=== PATIENT | female | born 1970 | race Caucasian/White ===

== ENCOUNTER 2024-02-20 07:59 | Outpatient (AMB) | payer OTHER, SELFPAY ==
--- NOTE | 2024-02-20 08:01 | MHC.PC.OV ---
Vital Signs 02/20/24 08:14 02/20/24 08:21 Height 5 ft 0.83 in Weight 139 lb 6 oz BMI 26.5 BP 142/86 H 138/84 Blood Pressure Location Lt brachial Lt brachial Position Sitting Sitting Respiration 12 Pulse 69 Pulse Source Pulse Oximeter Temp 97.3 F Temp Source Oral Pulse Oximetry (%) 96 Oxygen Delivery Method Room Air Intake Visit Reasons: Transfer from [facility] Intake Note: New patient visit Project Developer Required: No Allergies No Known Allergies Allergy (Verified 02/20/24 08:07) Medication List - Last Reconciled 02/20/24 by Ashley Miller PA-C alendronate 70 mg PO QWEEK amlodipine 10 mg PO DAILY amlodipine 5 mg PO DAILY hydrochlorothiazide 25 mg PO DAILY levothyroxine 50 mcg PO DAILY metoprolol succinate ER 100 mg PO DAILY valsartan 320 mg PO DAILY Tobacco use date assessed: 02/20/24 Dental Screening Dental Screen Date: 02/20/24 Did you have a dental visit in the last 12 months?: Yes Did you have a dental problem in the last 6 months where you did not have access to dental care?: No Was dental information given to patient?: Patient has dentist HPI Transfer from [facility] HPI Details Patient is a 53-year-old female who presents today to establish care/follow-up. She is transferring from [facility] and was last seen by myself on 11/28/2023. She has a significant past medical history of hypertension, ifg, Maninder's thyroiditis, osteoporosis and Raynaud's. CV: Blood pressure today in the office is 138/84. She is currently on valsartan 320 mg, metoprolol 100 mg extended-release, amlodipine 5 mg and chlorthalidone 25 mg. Ran out of chlorthalidone. 1-2 weeks ago. renal artery u/s done and neg. Endo: Last TSH was WNL. She is on levothyroxine 50 mcg. States she has only been taking 25 mcg of levothyroxine for the last couple weeks because she wonders if it is causing weight gain. She is on Fosamax for osteoporosis. Pap: Up-to-date, due in 2024 Mammogram: Up-to-date, completed November 2023 Colonoscopy: Up-to-date, due in 2028 [facility] Medical History (Updated 02/20/24 @ 08:19 by Ashley Miller PA-C) Hx of mammogram Raynauds syndrome Osteoporosis HTN (hypertension) Maninder's disease Surgical History (Updated 02/20/24 @ 08:04 by Hermelinda Valderrama CMA) History of colonoscopy Social History Housing: House Patient Tobacco Use Status: Former Tobacco user Years Smoked: College years e-Cigarette/Vaping Use: Never Used Second Hand Smoke Exposure: No service: No Current occupational status: employed 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 1. Little interest or pleasure in doing things: not at all 2. Feeling down, depressed, or hopeless: not at all 3. Trouble falling or staying asleep, or sleeping too much: not at all 4. Feeling tired or having little energy: not at all 5. Poor appetite or overeating: not at all 6. Feeling bad about yourself - or that you are a failure or have let yourself or your family down: not at all 7. Trouble concentrating on things, such as reading the newspaper or watching television: not at all 8. Moving or speaking so slowly that other people could have noticed. Or the opposite - being so fidgety or restless that you have been moving around a lot more than usual: not at all 9. Thoughts that you would be better off or of hurting yourself in some way: not at all Total score: 0 Depression Screening Interpretation: Negative Depression Screening Done: Yes [id number] - PHQ-9 Billing: Yes Source: Developed by Drs. Mal Shah, Yue Lawson, Jayant aRmos and colleagues, with an educational power from [employer]. Thrive Questionnaire Date Thrive assessed: 02/20/24 I am a: Patient What is your living situation today?: I have a steady place to live Within the past 12 months, did the food you bought not last and you didn't have the money to get more?: Never true Within the past 12 months, did you worry whether your food would run out before you got money to buy more?: Never true Do you have trouble paying for medicines?: No Do you have trouble getting transportation to medical appointments?: No Do you have trouble paying your heating and electricity bill?: No Do you have trouble taking care of your child, family member or friend?: No Do you have trouble with day-to-day activities such as bathing, preparing meals, shopping, managing finances, etc.?: No Are you currently unemployed and looking for a job?: No Are you interested in more education?: No Please select the resources that you would like help with: None THRIVE Score: 0 AUDIT C Alcohol Use Questionnaire (AUDIT-C) 1. How often do you have a drink containing alcohol?: 2-3 times a week 2. How many drinks containing alcohol do you have on a typical day when you are drinking?: 1 or 2 3. How often do you have six or more drinks on one occasion?: Never Total Score: 3 SARAH-7 AMB Questionnaire SARAH-7 Date SARAH - 7 assessed: 02/20/24 Feeling nervous, anxious, or on edge: 0 = Not at all Not being able to stop or control worryin = Not at all Worrying too much about different things: 0 = Not at all Trouble relaxin = Not at all Being so restless that it is hard to sit still: 0 = Not at all Becoming easily annoyed or irritable: 0 = Not at all Feeling afraid as if something awful might happen: 0 = Not at all Total SARAH-7 score (0-4 normal; 5-9 mild; 10-14 moderate; 15-21 severe): 0 Source: Developed by Drs. Mal Shah, Yue Lawson, Jayant Ramos and colleagues, with an educational power from [employer]. SARAH-7 Assessment Billing SARAH-7 Assessment Tool: SARAH-7 Assessment 47775 Physical exam (Primary Care) Vital Signs: Last Vital Signs Temp 97.3 F 02/20/24 08:14 Pulse 69 02/20/24 08:14 Resp 12 02/20/24 08:14 BP 142/86 H 02/20/24 08:14 Pulse Ox 96 02/20/24 08:14 Oxygen Delivery Method Room Air 02/20/24 08:14 BMI result Body Mass Index 26.5 Depression Screening Interpretation: Negative Const Orientation/consciousness: patient oriented x3 HENMT Ears: hearing grossly normal bilaterally Neck Thyroid: Thyroid normal Lymphatic: no lymphadenopathy noted Resp Auscultation: clear to auscultation bilaterally Cardio Rate: regular rate Rhythm: regular rhythm Heart sounds: S1 normal heart sound present and S2 normal heart sound present GI Inspection: Yes normal to inspection Palpation (GI): Soft to palpation and Other GI palpation findings present (nontender, no cva tenderness) Auscultation: normoactive bowel sounds Rectal Exam - Female: deferred Skin General skin exam: no rashes or lesions noted Neuro General: patient oriented x3, gait normal and no focal motor deficits Assessment and Plan Assessment & Plan (1) Impaired fasting glucose: Code(s): R73.01 - Impaired fasting glucose Plan: a1c ordered (2) Osteoporosis: Code(s): M81.0 - Age-related osteoporosis without current pathological fracture Plan: continue on fosamax (3) Maninder's disease: Code(s): E06.3 - Autoimmune thyroiditis Plan: tsh ordered. continue levothyroxine 50 mcg for 4 weeks then repeat labs. (4) HTN (hypertension): Code(s): I10 - Essential (primary) hypertension Plan: chlorthalidone ordered. continue current meds Orders: Orders Comprehensive [facility]. Panel Fast Today E06.3 - Autoimmune thyroiditis, I10 - Essential (primary) hypertension, M81.0 - Age-related osteoporosis without current pathological fracture, R73.01 - Impaired fasting glucose Lipid Panel Today E06.3 - Autoimmune thyroiditis, I10 - Essential (primary) hypertension, M81.0 - Age-related osteoporosis without current pathological fracture, R73.01 - Impaired fasting glucose TSH reflex Free T4 Today E06.3 - Autoimmune thyroiditis, I10 - Essential (primary) hypertension, M81.0 - Age-related osteoporosis without current pathological fracture, R73.01 - Impaired fasting glucose Complete Blood Count Auto Diff Today E06.3 - Autoimmune thyroiditis, I10 - Essential (primary) hypertension, M81.0 - Age-related osteoporosis without current pathological fracture, R73.01 - Impaired fasting glucose Hemoglobin A1c Today E06.3 - Autoimmune thyroiditis, I10 - Essential (primary) hypertension, M81.0 - Age-related osteoporosis without current pathological fracture, R73.01 - Impaired fasting glucose Medications: New amlodipine 5 mg PO DAILY 90 tabs 3RF valsartan 320 mg PO DAILY 90 tabs 3RF metoprolol succinate ER 100 mg PO DAILY 90 tabs 3RF chlorthalidone 25 mg PO DAILY 90 tabs 3RF Coding Level of Care Code Est Pt Level 4 (18964) Complex EM visit Add On G2211 Diagnoses Impaired fasting glucose R73.01 Osteoporosis M81.0 Maninder's disease E06.3 HTN (hypertension) I10 Additional Codes SARAH-7 Assessment Billing - SARAH-7 Assessment Tool: SARAH-7 Assessment 56952 ([id number])
[2024-02-20 08:14] VITALS: BP 142/86; PULSE 69; RESP 12; TEMP 36.3; O2SAT 96; BMI 26.5
[2024-02-20 08:21] VITALS: BP 138/84
== END 2024-02-20 08:46 | disposition home or self-care (01) ==
PROVIDERS: PCP Physician Assistant; Visit Provider Physician Assistant
DX: R73.01 Impaired fasting glucose (principal); M81.0 Age-related osteoporosis without current pathological fracture; E06.3 Autoimmune thyroiditis; I10 Essential (primary) hypertension
CPT/HCPCS: 99214; G2211

== ENCOUNTER 2024-08-26 07:33 | Outpatient (REF) | payer OTHER, SELFPAY ==
[2024-08-26 11:09] LABS: MANUAL DIFF FLAG NO
[2024-08-26 11:14] LABS: Basophils Absolute Auto 0.1 X10*3/uL (0.0-0.2); Basophils Percent Auto 1.3 % (0-2); Eosinophils Absolute Auto 0.2 X10*3/uL (0.0-0.4); Eosinophils Percent Auto 5.9 % (0-4); Hematocrit 37.5 % (37.0-47.0); Imm Gran Abs Auto 0.01 X10*3/uL (0.00-0.03); Imm Gran Pct Auto 0.3 % (0.0-0.4); Lymphocytes Absolute Auto 1.6 X10*3/uL (1.2-4.9); Mean Corpuscular HGB Conc 34.7 g/dl (31.0-35.0); Mean Corpuscular Hemoglobin 32.1 pg (27.0-33.0); Mean Corpuscular Volume 92.6 fL (80.0-98.0); Mean Platelet Volume 11.6 fL (9.4-12.3); Monocytes Absolute Auto 0.3 X10*3/uL (0.1-1.2); Monocytes Percent Auto 7.5 % (2-11); Neutrophils Absolute Auto 1.6 x10*3/uL (2.0-8.3); Platelet Count 227 X10*3/uL (160-400); Red Blood Count 4.05 X10*6/uL (4.20-5.50); Red Cell Distribution Width 12.3 % (11.0-16.0); White Blood Count 3.7 X10*3/uL (4.8-10.8)
[2024-08-26 11:29] LABS: Estimated Average Glucose 105 mg/dL; Hemoglobin A1C 114.3549 umol/L; Hemoglobin A1c % 5.3 % (<6.0); Total Hemoglobin (HGBA1C) 3305.0443 umol/L
[2024-08-26 11:38] LABS: Alanine Aminotransferase 18 U/L (0-31); Albumin Level 4.1 g/dL (3.5-5.0); Alkaline Phosphatase 47 U/L (39-117); Anion Gap 11 (12-20); Aspartate Amino Transferase 24 U/L (5-31); Bilirubin Total 0.6 mg/dL (0.0-1.0); Blood Urea Nitrogen 15 mg/dL (9-16); Calcium 9.4 mg/dL (8.4-10.2); Carbon Dioxide 30 mmol/L (22-29); Chloride 103 mmol/L (96-108); Cholesterol 218 mg/dL (<200); Estimated Glomerular Filt Rate > 60; Glucose Fasting 99 mg/dL (60-99); HDL Cholesterol 69 mg/dL (>40); LDL Cholesterol Calculated 132 mg/dL (<100); Potassium 3.5 mmol/L (3.3-5.1); Sodium 140 mmol/L (135-145); Total Protein 7.2 g/dL (6.5-8.0); Triglycerides 86 mg/dL (<150)
[2024-08-26 12:01] LABS: TSH reflex Free T4 2.78 uIU/mL (0.32-4.0)
== END 2024-08-26 07:34 | disposition home or self-care (01) ==
LOC: HO.WFDLDS 07:33
PROVIDERS: Visit Provider Physician Assistant
DX: I10 Essential (primary) hypertension (principal); E06.3 Autoimmune thyroiditis; M81.0 Age-related osteoporosis without current pathological fracture; R73.01 Impaired fasting glucose
CPT/HCPCS: 36415; 80053; 80061; 83036; 84443; 85025

== ENCOUNTER 2024-08-27 15:33 | Outpatient (AMB) | payer OTHER, SELFPAY ==
--- NOTE | 2024-08-27 15:39 | MHC.PC.OV ---
Vital Signs 08/27/24 15:44 Height 5 ft 0.3 in Weight 140 lb 6 oz BMI 27.1 BP 122/84 Blood Pressure Location Lt brachial Position Sitting Pulse 59 Pulse Source Pulse Oximeter Pulse Oximetry (%) 99 Oxygen Delivery Method Room Air Intake Visit Reasons: Annual PE Intake Note: Physical Roof Tiler Required: No Allergies No Known Allergies Allergy (Verified 08/27/24 15:39) Tobacco use date assessed: 02/20/24 Dental Screening Dental Screen Date: 02/20/24 HPI Annual PE HPI Details Patient is a 53-year-old female who presents today for a cpe. She has a significant past medical history of hypertension, ifg, Maninder's thyroiditis, osteoporosis and Raynaud's. CV: Blood pressure today in the office is 122/84. She is currently on valsartan 320 mg, metoprolol 100 mg extended-release, amlodipine 5 mg and chlorthalidone 25 mg. renal artery u/s done and neg. Endo: Last TSH was WNL. She is on levothyroxine 50 mcg. Pap: Up-to-date, due in 2024 Mammogram: Up-to-date, completed November 2023 Colonoscopy: Up-to-date, due in 2028 [facility] Medical History (Updated 08/27/24 @ 16:06 by Ashley Miller PA-C) Hx of mammogram Raynauds syndrome Osteoporosis HTN (hypertension) Maninder's disease Surgical History History of colonoscopy Social History (Updated 08/27/24 @ 15:46 by Hermelinda Valderrama CMA) Housing: House Alcohol intake: current Patient Tobacco Use Status: Former Tobacco user Years Smoked: College years e-Cigarette/Vaping Use: Never Used Second Hand Smoke Exposure: No service: No Current occupational status: employed 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 1. Little interest or pleasure in doing things: not at all 2. Feeling down, depressed, or hopeless: not at all 3. Trouble falling or staying asleep, or sleeping too much: not at all 4. Feeling tired or having little energy: not at all 5. Poor appetite or overeating: not at all 6. Feeling bad about yourself - or that you are a failure or have let yourself or your family down: not at all 7. Trouble concentrating on things, such as reading the newspaper or watching television: not at all 8. Moving or speaking so slowly that other people could have noticed. Or the opposite - being so fidgety or restless that you have been moving around a lot more than usual: not at all 9. Thoughts that you would be better off or of hurting yourself in some way: not at all Total score: 0 Source: Developed by Drs. Mal Shah, Yue Lawson, Jayant Ramos and colleagues, with an educational power from [employer]. Thrive Questionnaire Date Thrive assessed: 02/20/24 I am a: Patient What is your living situation today?: I have a steady place to live Within the past 12 months, did the food you bought not last and you didn't have the money to get more?: Never true Within the past 12 months, did you worry whether your food would run out before you got money to buy more?: Never true Do you have trouble paying for medicines?: No Do you have trouble getting transportation to medical appointments?: No Do you have trouble paying your heating and electricity bill?: No Do you have trouble taking care of your child, family member or friend?: No Do you have trouble with day-to-day activities such as bathing, preparing meals, shopping, managing finances, etc.?: No Are you currently unemployed and looking for a job?: No Are you interested in more education?: No Please select the resources that you would like help with: None Currently or been in a relationship where the following occur: No concerns reported THRIVE Score: 0 AUDIT C Alcohol Use Questionnaire (AUDIT-C) 1. How often do you have a drink containing alcohol?: 2-4 times a month 2. How many drinks containing alcohol do you have on a typical day when you are drinking?: 1 or 2 3. How often do you have six or more drinks on one occasion?: Monthly Total Score: 4 SARAH-7 AMB Questionnaire SARAH-7 Date SARAH - 7 assessed: 02/20/24 Feeling nervous, anxious, or on edge: 0 = Not at all Not being able to stop or control worryin = Not at all Worrying too much about different things: 0 = Not at all Trouble relaxin = Not at all Being so restless that it is hard to sit still: 0 = Not at all Becoming easily annoyed or irritable: 0 = Not at all Feeling afraid as if something awful might happen: 0 = Not at all Total SARAH-7 score (0-4 normal; 5-9 mild; 10-14 moderate; 15-21 severe): 0 Source: Developed by Drs. Mal Shah, Yue Lawson, Jayant Ramos and colleagues, with an educational power from [employer]. Physical exam (Primary Care) Vital Signs: Last Vital Signs Pulse 59 08/27/24 15:44 BP 122/84 08/27/24 15:44 Pulse Ox 99 08/27/24 15:44 Oxygen Delivery Method Room Air 08/27/24 15:44 BMI result Body Mass Index 27.1 Tobacco/Smoking Status: Tobacco use Status Tobacco use date assessed 02/20/24 08/27/24 15:46 Patient Tobacco Use Status Former Tobacco user 08/27/24 15:46 e-Cigarette/Vaping Use Never Used 08/27/24 15:46 PHQ-9: PHQ-9 Score PHQ-9: Total score 0 08/27/24 15:46 Thrive Assessment: Date of Thrive Assessment Date Thrive assessed 02/20/24 08/27/24 15:46 Currently or been in a relationship where the following occur: No concerns reported Const Orientation/consciousness: patient oriented x3 HENMT Ears: hearing grossly normal bilaterally and TM's normal bilaterally General nose exam: No nasal polyps present Face and sinus: Yes sinuses nontender Mouth: Normal oral and palatal mucosa present Eyes Pupils: Equal, round and reactive pupils present EOM: EOMs intact bilaterally Neck Neck: Yes full ROM and Yes no lymphadenopathy Thyroid: Thyroid normal Chest Chest palpation & inspection: normal inspection of the chest Resp Auscultation: clear to auscultation bilaterally Cardio Rate: regular rate Rhythm: regular rhythm Heart sounds: S1 normal heart sound present and S2 normal heart sound present Peripheral pulses: Peripheral pulses 2+ throughout GI Other: Soft, nontender Auscultation: normal bowel sounds Rectal Exam - Female: deferred General: Yes no CVA tenderness Back/Spine/Pelvis Other: Nontender Back: no CVA tenderness Skin General skin exam: no rashes or lesions noted Neuro General: patient oriented x3, gait normal, CN's II-XI intact bilaterally and deep tendon reflexes 2+ bilaterally Cranial nerves: Yes Equal, round and reactive pupils present Motor exam (neuro): 5/5 motor strength present throughout Sensory Exam: double simultaneous stimulation for sensation normal Coordination: [id number] test normal and Romberg test negative Extrem General: Yes normal to inspection and Yes full ROM Psych Affect: normal affect Attitude: cooperative Thought process: Normal thought process present Thought content: Normal thought content present Insight: Good insight present (Psych) Judgement: Good judgement present (Psych) Coding Level of Care Code Est Pt Prev Care 40-64y(48768) Diagnoses Routine general medical examination at a health care facility Z00.00 Environmental allergies Z91.09 HTN (hypertension) I10 Assessment & Plan Assessment & Plan (1) Routine general medical examination at a [facility] care facility: Code(s): Z00.00 - Encounter for general adult medical examination without abnormal findings Plan: reviewed labs reviewed (2) Environmental allergies: Code(s): Z91.09 - Other allergy status, other than to drugs and biological substances Category: Medical Plan: Wants to see Allergy and immunology. Referral placed. (3) HTN (hypertension): Code(s): I10 - Essential (primary) hypertension Category: Medical Plan: wnl Orders: Referrals Allergy & Immunology Referral Z91.09 - Other allergy status, other than to drugs and biological substances
[2024-08-27 15:44] VITALS: BP 122/84; PULSE 59; O2SAT 99; BMI 27.1
== END 2024-08-27 16:18 | disposition home or self-care (01) ==
PROVIDERS: PCP Physician Assistant; Visit Provider Physician Assistant
DX: Z00.00 Encounter for general adult medical examination without abnormal findings (principal); Z91.09 Other allergy status, other than to drugs and biological substances; I10 Essential (primary) hypertension

== ENCOUNTER → 2024-08-27 15:33 | Outpatient (BNVA) | payer OTHER, SELFPAY | PROVIDERS: PCP Physician Assistant; Visit Provider Physician Assistant ==

== ENCOUNTER 2025-02-26 08:24 | Outpatient (AMB) | payer OTHER, SELFPAY ==
--- NOTE | 2025-02-26 08:35 | MHC.PC.OV ---
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 She has a significant past medical history of hypertension, ifg, Maninder's thyroiditis, osteoporosis and Raynaud's. CV: Blood pressure today in the office is 106/66. She is currently on valsartan 320 mg, metoprolol 100 mg extended-release, amlodipine 5 mg and chlorthalidone 25 mg. renal artery u/s done and neg. Endo: Last TSH was WNL. She is on levothyroxine 50 mcg. 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 She is very physically active and tries to eat very healthy. She has been following with an online compound pharmacy for naltrexone and Wellbutrin but feels that it makes her feel a bit anxious and causes a stutter. She has stopped this medication as she also did not notice any significant weight loss. She would like to try an injectable. Pap: Up-to-date, scheduled this year Mammogram: Up-to-date, completed November 2024 Colonoscopy: Up-to-date, due in 2028 Bone density: UTD, osteoporosis- on fosamax by expanding machine operator [facility] Medical History (Updated 08/27/24 @ 16:06 by Ashley Miller PA-C) Hx of mammogram Raynauds syndrome Osteoporosis HTN (hypertension) Maninder's disease Surgical History History of colonoscopy Social History (Updated 08/27/24 @ 15:46 by Hermelinda Valderrama CMA) Housing: House Alcohol intake: current Patient Tobacco Use Status: Former Tobacco user Years Smoked: College years e-Cigarette/Vaping Use: Never Used Second Hand Smoke Exposure: No service: No Current occupational status: employed 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 1. Little interest or pleasure in doing things: not at all 2. Feeling down, depressed, or hopeless: not at all 3. Trouble falling or staying asleep, or sleeping too much: not at all 4. Feeling tired or having little energy: not at all 5. Poor appetite or overeating: not at all 6. Feeling bad about yourself - or that you are a failure or have let yourself or your family down: not at all 7. Trouble concentrating on things, such as reading the newspaper or watching television: not at all 8. Moving or speaking so slowly that other people could have noticed. Or the opposite - being so fidgety or restless that you have been moving around a lot more than usual: not at all 9. Thoughts that you would be better off or of hurting yourself in some way: not at all Total score: 0 Depression Screening Interpretation: Negative Depression Screening Done: Yes 78185 - PHQ-9 Billing: Yes Source: Developed by Drs. Mal Shah, Yue Lawson, Jayant Ramos and colleagues, with an educational power from [employer]. Thrive Questionnaire Date Thrive assessed: 02/20/24 I am a: Patient What is your living situation today?: I have a steady place to live Within the past 12 months, did the food you bought not last and you didn't have the money to get more?: Never true Within the past 12 months, did you worry whether your food would run out before you got money to buy more?: Never true Do you have trouble paying for medicines?: No Do you have trouble getting transportation to medical appointments?: No Do you have trouble paying your heating and electricity bill?: No Do you have trouble taking care of your child, family member or friend?: No Do you have trouble with day-to-day activities such as bathing, preparing meals, shopping, managing finances, etc.?: No Are you currently unemployed and looking for a job?: No Are you interested in more education?: No Please select the resources that you would like help with: None Currently or been in a relationship where the following occur: No concerns reported THRIVE Score: 0 AUDIT C Alcohol Use Questionnaire (AUDIT-C) 1. How often do you have a drink containing alcohol?: Monthly or less 2. How many drinks containing alcohol do you have on a typical day when you are drinking?: 1 or 2 3. How often do you have six or more drinks on one occasion?: Never Total Score: 1 SARAH-7 AMB Questionnaire SARAH-7 Date SARAH - 7 assessed: 02/20/24 Feeling nervous, anxious, or on edge: 0 = Not at all Not being able to stop or control worryin = Not at all Worrying too much about different things: 0 = Not at all Trouble relaxin = Not at all Being so restless that it is hard to sit still: 0 = Not at all Becoming easily annoyed or irritable: 0 = Not at all Feeling afraid as if something awful might happen: 0 = Not at all Total SARAH-7 score (0-4 normal; 5-9 mild; 10-14 moderate; 15-21 severe): 0 Source: Developed by Drs. Mal Shah, Yue Lawson, Jayant Ramos and colleagues, with an educational power from [employer]. SARAH-7 Assessment Billing SARAH-7 Assessment Tool: SARAH-7 Assessment 11918 Physical exam (Primary Care) Vital Signs: Last Vital Signs Temp 98.5 F 02/26/25 08:38 Pulse 61 02/26/25 08:38 Resp 12 02/26/25 08:38 BP 106/66 02/26/25 08:38 Pulse Ox 97 02/26/25 08:38 Oxygen Delivery Method Room Air 02/26/25 08:38 BMI result Body Mass Index 26.3 Tobacco/Smoking Status: Tobacco use Status Tobacco use date assessed 02/20/24 02/26/25 08:41 Patient Tobacco Use Status Former Tobacco user 02/26/25 08:41 e-Cigarette/Vaping Use Never Used 02/26/25 08:41 PHQ-9: PHQ-9 Score PHQ-9: Total score 0 02/26/25 08:41 Depression Screening Interpretation: Negative Thrive Assessment: Date of Thrive Assessment Date Thrive assessed 02/20/24 02/26/25 08:41 Currently or been in a relationship where the following occur: No concerns reported Const Orientation/consciousness: patient oriented x3 HENMT Ears: hearing grossly normal bilaterally Neck Thyroid: Thyroid normal Lymphatic: no lymphadenopathy noted Resp Auscultation: clear to auscultation bilaterally Cardio Rate: regular rate Rhythm: regular rhythm Heart sounds: S1 normal heart sound present and S2 normal heart sound present GI Inspection: Yes normal to inspection Palpation (GI): Soft to palpation and Other GI palpation findings present (nontender, no cva tenderness) Auscultation: normoactive bowel sounds Rectal Exam - Female: deferred Skin General skin exam: no rashes or lesions noted Neuro General: patient oriented x3, gait normal and no focal motor deficits Results Reviewed Results Reviewed: Laboratory Tests 08/26/24 07:35 WBC 3.7 L RBC 4.05 L Hgb 13.0 Hct 37.5 Plt Count 227 Sodium 140 Potassium 3.5 Chloride 103 Carbon Dioxide 30 H Anion Gap 11 L BUN 15 Creatinine 0.73 Estimated GFR > 60 Fasting Glucose 99 Estimat Average Glucose 105 Hemoglobin A1c % 5.3 Calcium 9.4 Total Bilirubin 0.6 AST 24 ALT 18 Alkaline Phosphatase 47 Total Protein 7.2 Albumin 4.1 Triglycerides 86 Cholesterol 218 H LDL Cholesterol, Calc 132 H HDL Cholesterol 69 TSH 2.78 Coding Level of Care Code Est Pt Level 4 (15928) Complex EM visit Add On G2211 Diagnoses HTN (hypertension) I10 Impaired fasting glucose R73.01 Osteoporosis M81.0 Maninder's disease E06.3 Additional Codes SARAH-7 Assessment Billing - SARAH-7 Assessment Tool: SARAH-7 Assessment 21058 ([id number]) PHQ-9 - 85076 - PHQ-9 Billing: Yes ([id number]) Assessment & Plan Assessment & Plan (1) HTN (hypertension): Code(s): I10 - Essential (primary) hypertension Category: Medical Plan: We will cut back on the metoprolol given blood pressures have recently been low end normal. Continue with valsartan and amlodipine. We will recheck in a few months (2) Impaired fasting glucose: Code(s): R73.01 - Impaired fasting glucose Category: Medical Plan: Zepbound ordered. We discussed risks and benefits and adverse effects of this medication at length. She is going to pay [id number]. Her BMI is overweight. We will recheck in a few months. (3) Osteoporosis: Code(s): M81.0 - Age-related osteoporosis without current pathological fracture Category: Medical Plan: Following with gynecology. States that she has a bone density ordered by them (4) Maninder's disease: Code(s): E06.3 - Autoimmune thyroiditis Category: Medical Plan: We will monitor. Continue levothyroxine Orders: Orders TSH reflex Free T4 Today E06.3 - Autoimmune thyroiditis, I10 - Essential (primary) hypertension, M81.0 - Age-related osteoporosis without current pathological fracture, R73.01 - Impaired fasting glucose Hemoglobin A1c Today R73.01 - Impaired fasting glucose Complete Blood Count Auto Diff Today E06.3 - Autoimmune thyroiditis, I10 - Essential (primary) hypertension, M81.0 - Age-related osteoporosis without current pathological fracture, R73.01 - Impaired fasting glucose Comprehensive [place]. Panel Fast Today E06.3 - Autoimmune thyroiditis, I10 - Essential (primary) hypertension, M81.0 - Age-related osteoporosis without current pathological fracture, R73.01 - Impaired fasting glucose Lipid Panel Today E06.3 - Autoimmune thyroiditis, I10 - Essential (primary) hypertension, M81.0 - Age-related osteoporosis without current pathological fracture, R73.01 - Impaired fasting glucose Medications: New tirzepatide (weight loss) (Zepbound) 5 mg (0.5 mL) subcut QWEEK 2 mL 3RF metoprolol succinate ER 50 mg PO DAILY 90 tabs 1RF metoprolol succinate ER 50 mg PO DAILY 90 tabs 1RF Discontinued metoprolol succinate ER Discontinued Reason: Doctor's Order 100 mg PO DAILY 90 tabs 1RF
[2025-02-26 08:38] VITALS: BP 106/66; PULSE 61; RESP 12; TEMP 36.9; O2SAT 97; BMI 26.3
--- OUTSIDE RECORDS SUMMARY | 2025-02-26 08:45 | XMS_ITS | Clinical Summary ---
Author Organization [facility] Address [address] [place] [address] Phone Care Team Providers Care Home Organizer Name Role Phone Ashley Miller PA-C Primary Care Provider + Allergies No known active allergies Medications amLODIPine (NORVASC) 5 MG tablet Take 5 mg by mouth 1 (one) time each day Active Calcium Carb-Cholecalci ferol (CALCIUM 600 + D PO) Take 1 tablet by mouth 1 (one) time each day Active hydroCHLOROthia zide (HYDRODIURIL) 50 MG tablet Take 50 mg by mouth 1 (one) time each day Active levothyroxine (SYNTHROID, LEVOTHROID) 25 MCG tablet Take 25 mcg by mouth 1 (one) time each day Active clotrimazole (Lotrimin AF) 1 % cream Apply topically 2 (two) times a day Active metoprolol succinate XL (TOPROL-XL) 100 MG 24 hr tablet Take 100 mg by mouth 1 (one) time each day Do not crush or chew. Active valsartan (DIOVAN) 320 MG tablet Take 320 mg by mouth 1 (one) time each day Active Active Problems Problem Noted Date Diagnosed Date Hypertension 03/09/2024 Family History Medical History Relation Comments Cancer Father lung Cancer Sister breast Relation Status Comments Father Sister Social History Tobacco Use Types Packs/Day Years Used Date Smoking Tobacco: Former Cigarettes Smokeless Tobacco: Never Tobacco Cessation:Counseling Given: Not Answered Alcohol Use Standard Drinks/Week Comments Yes 0 (1 standard drink = 0.6 oz pur e alcohol) 1-2 times per week Comments Unknown Sex and Gender Information Value Date Recorded Sex Assigned at Not on file Legal Sex Female 10:07 AM EDT Gender Identity Not on file Sexual Orientation Not on file Plan of Treatment Health Maintenance Due Date Last Done Comments Breast Cancer Screening 1970 Hepatitis B Vaccine (1 of 3 - 19+ 3-dose series) 06/11 Colorectal Cancer Screening: Annual FOBT 2017 Colorectal Cancer Screening: Colonoscopy 2017 Colorectal Cancer Screening: Sigmoidoscopy 2017 Pneumococcal Vaccine: 50+ Years (1 of 1 - PCV) 018 Influenza Vaccine (Season Ended) [address] [place] [address] [facility] Care Teams Home Organizer Relationship Specialty Start Date End Date Ashley Miller PA-C [facility] [place] [address] PCP - General Physician Enrober 12/07/23
== END 2025-02-26 09:09 | disposition home or self-care (01) ==
LOC: HO.HMCFM 08:30
PROVIDERS: PCP Physician Assistant; Visit Provider Physician Assistant
DX: I10 Essential (primary) hypertension (principal); R73.01 Impaired fasting glucose; M81.0 Age-related osteoporosis without current pathological fracture; E06.3 Autoimmune thyroiditis

== ENCOUNTER → 2025-02-26 08:24 | Outpatient (BNVA) | payer OTHER, SELFPAY | PROVIDERS: PCP Physician Assistant; Visit Provider Physician Assistant | DX: I10 Essential (primary) hypertension (principal); R73.01 Impaired fasting glucose; M81.0 Age-related osteoporosis without current pathological fracture; E06.3 Autoimmune thyroiditis; Z79.899 Other long term (current) drug therapy; Z13.31 Encounter for screening for depression | CPT/HCPCS: 96127 ==